=== PATIENT | female | born 1995 | race Caucasian/White ===

== ENCOUNTER 2016-12-24 15:48 | Emergency (ER) | payer OTHER ==
[~2016-12-24] VITALS: Ht 175.3 cm; Wt 148.6 kg
[~2016-12-24 15:48] MED LIST: MULT-222 PO
[2016-12-24 15:52] VITALS: TEMP 36.7; Ht 175.3 cm; Wt 148.6 kg
[2016-12-24] MEDS ORDERED: METHYLPREDNISOLONE 125 MG VIAL IV STA (16:02)
[2016-12-24] MEDS ORDERED: ALBUT/IPRATROP 3MG/0.5MG NEB 3 ML VIAL INH STA ×2 (16:02→17:19)
--- NOTE | 2016-12-24 16:19 | EMERGENCY ROOM VISIT NOTE ---
History First contact with patient: 15:56 Chief Complaint: SHORTNESS OF BREATH Stated Complaint: CAN'T CATCH BREATH Nursing Triage Summary: "I can't cath my breath." Reports it started yesterday and has gotten worse today. Denies pain History of Present Illness The patient is a 21 year old female who presents to the Emergency Room with complaints of shortness of breath. The patient states that she has had allergy symptoms over the past 2 weeks, including sneezing, nasal discharge and itchy, watery eyes. She reports that this week, the symptoms "moved into her chest." She has had difficulty breathing for the past 2 days. She is taking Mucinex and Zyrtec without relief of her symptoms. She denies any history of asthma. She denies any history of breathing problems. She does not take control pills and denies any recent long travel. She denies any personal or family history of blood clots or clotting disorders. She denies any chest pain. She has a mild, nonproductive cough. She denies any fevers/chills, leg pain or swelling. Review of Systems A complete 10 point review of systems was reviewed with the patient with pertinent positives and negatives as per history of present illness. All else were negative. Past Medical/Surgical History Medical Problems: (1) Hypertension Family History Diabetes mellitus FH: heart disease Hypertension Kidney disease Kidney stones Social History Smoking Status: Never Smoker Alcohol Use: none Drug Use: none Marital Status: in relationship Housing Status: lives with family Occupation Status: employed Current/Historical Medications Scheduled Azithromycin (Zithromax Z-Bryan), 0 PO UD Fluoxetine (Prozac), 20 MG PO QAM Methylprednisolone (Medrol Dosepak), 0 PO DAILY Scheduled PRN Guaifenesin (Mucinex Maximum Strength), 1 TAB PO BID PRN for CONGESTION Allergies Coded Allergies: No Known Allergies (Unverified , 12/24/16) Physical Exam Vital Signs Date Time Temp Pulse Resp B/P Pulse Ox O2 Delivery O2 Flow Rate FiO2 12/24/16 18:20 107 20 110/86 96 12/24/16 17:03 103 20 109/76 92 Room Air 12/24/16 16:56 108 12/24/16 16:10 93 Room Air 12/24/16 16:10 Room Air 12/24/16 15:55 93 Room Air 12/24/16 15:52 36.7 109 20 141/97 93 Room Air Physical Exam VITALS: Vitals are noted on the nurse's note and reviewed by myself. Vital signs stable. GENERAL: This is a 21-year-old female, in no acute distress, nondiaphoretic, well-developed well-nourished. SKIN: The skin was without rashes. EARS: External auditory canals clear, tympanic membranes pearly molina without erythema or effusion bilaterally. EYES: Pupils equal round and reactive to light and accommodation. Conjunctivae without injection, sclerae without icterus. NOSE: Patent, turbinates mildly inflamed with clear discharge. MOUTH: Mucous membranes moist. Tonsils are not enlarged. Pharynx without erythema or exudate. NECK: Supple without nuchal rigidity. No lymphadenopathy. HEART: Regular rate and rhythm without murmurs gallops or rubs. LUNGS: Diffuse inspiratory and expiratory wheezes. No rhonchi or rales. No accessory muscle use. NEURO: Patient was alert and oriented to person place and time. Medical Decision & Procedures ER Provider Diagnostic Interpretation: CHEST 2 VIEWS ROUTINE HISTORY: cough, wheezing COMPARISON: None. FINDINGS: The lungs are clear. Cardiac silhouette is normal in size. No pleural effusions. No pneumothorax. IMPRESSION: No acute process. Laboratory Results 12/24/16 16:10 Red Blood Count 5.21, Mean Corpuscular Volume 83.3, Mean Corpuscular Hemoglobin 27.6, Mean Corpuscular Hemoglobin Concent 33.2, Mean Platelet Volume 10.2, Neutrophils (%) (Auto) 68.6, Lymphocytes (%) (Auto) 21.9, Monocytes (%) (Auto) 6.1, Eosinophils (%) (Auto) 3.0, Basophils (%) (Auto) 0.1, Neutrophils # (Auto) 9.39, Lymphocytes # (Auto) 2.99, Monocytes # (Auto) 0.83, Eosinophils # (Auto) 0.41, Basophils # (Auto) 0.02 12/24/16 16:10 Test 12/24/16 16:10 White Blood Count 13.68 K/uL (4.8-10.8) Red Blood Count 5.21 M/uL (4.2-5.4) Hemoglobin 14.4 g/dL (12.0-16.0) Hematocrit 43.4 % (37-47) Mean Corpuscular Volume 83.3 fL (80-100) Mean Corpuscular Hemoglobin 27.6 pg (25-34) Mean Corpuscular Hemoglobin Concent 33.2 g/dl (32-36) Platelet Count 342 K/uL (130-400) Mean Platelet Volume 10.2 fL (7.4-10.4) Neutrophils (%) (Auto) 68.6 % Lymphocytes (%) (Auto) 21.9 % Monocytes (%) (Auto) 6.1 % Eosinophils (%) (Auto) 3.0 % Basophils (%) (Auto) 0.1 % Neutrophils # (Auto) 9.39 K/uL (1.4-6.5) Lymphocytes # (Auto) 2.99 K/uL (1.2-3.4) Monocytes # (Auto) 0.83 K/uL (0.11-0.59) Eosinophils # (Auto) 0.41 K/uL (0-0.5) Basophils # (Auto) 0.02 K/uL (0-0.2) RDW Standard Deviation 40.7 fL (36.4-46.3) RDW Coefficient of Variation 13.5 % (11.5-14.5) Immature Granulocyte % (Auto) 0.3 % Immature Granulocyte # (Auto) 0.04 K/uL (0.00-0.02) D-Dimer 390 ug/L FEU (0-500) Anion Gap 7.0 mmol/L (3-11) Est Creatinine Clear Calc Drug Dose 155.7 ml/min Estimated GFR () 107.3 Estimated GFR (Non- 92.6 BUN/Creatinine Ratio 17.5 (10-20) Calcium Level 9.3 mg/dl (8.5-10.1) Medications Administered Medications (Trade) Dose Ordered Sig/Jessica Route Start Time Stop Time Status Last Admin Dose Admin Albuterol/ Ipratropium (Duoneb) 3 ml NOW STAT INH 12/24/16 16:02 12/24/16 16:04 DC 12/24/16 16:19 3 ML Methylprednisolone Sodium Succinate (Solu-Medrol IV) 125 mg NOW STAT IV 12/24/16 16:02 12/24/16 16:04 DC 12/24/16 16:19 125 MG Albuterol/ Ipratropium (Duoneb) 3 ml NOW STAT INH 12/24/16 17:19 12/24/16 17:20 DC 12/24/16 17:25 3 ML ED Course The patient was evaluated as above. Labs were drawn and IV access was obtained. Patient was medicated with a DuoNeb treatment and 125 mg Solu-Medrol. Chest x-ray was performed and read by radiology as above. Patient was reevaluated and felt much better, but was still wheezing. An additional DuoNeb treatment was ordered. Discharge instructions were reviewed with the patient. The patient verbalized understanding of my assessment and treatment plan and was discharged home in good condition. Medical Decision Differential diagnosis includes pneumonia, pulmonary embolism, asthma exacerbation, upper respiratory infection, among others. The patient is a 21-year-old female who presents today complaining of difficulty breathing. Exam revealed diffuse wheezes. Labs revealed a mild leukocytosis. D-dimer was not elevated. The patient felt much better after 2 DuoNeb treatments and IV Solu-Medrol. I feel that she likely has an upper respiratory infection and possibly a component of underlying asthma. After her second DuoNeb treatment, she was reevaluated and her lungs sounded much clearer. Her O2 saturations in the room were between 96 and 98%. She will be placed on a Z-Bryan and Medrol Dosepak. She was given an inhaler for symptomatic relief. She was instructed to follow-up with her primary care provider for further evaluation this week. She will return for any worsening shortness of breath or new/concerning symptoms. Based on the patient's presentation and work up, I feel the patient is stable for outpatient treatment. The patient was educated to return to the emergency department for any worsening of their current condition or new/concerning symptoms. She will follow up with her PCP. Impression Primary Impression: Acute bronchitis Departure Information Dispostion Home / Self-Care Condition GOOD Prescriptions Methylprednisolone (MEDROL DOSEPAK) 4 Mg Bryan 0 PO DAILY, #1 PKT Prov: Jihan Murguia PA-C 12/24/16 Azithromycin (ZITHROMAX Z-BRYAN) 250 Mg Tab 0 PO UD, #1 PKT 2 TABS DAY 1, THEN 1 TAB DAILY FOR 4 DAYS Prov: Jihan Murguia PA-C 12/24/16 Referrals Carola Cantrell PShayan (PCP) Patient Instructions My [facility] Additional Instructions You were prescribed Zithromax to be taken as prescribed. This is an antibiotic. All antibiotics have the potential to cause diarrhea. Stop this medication and contact a medical provider if you were to develop any significant adverse side effects including: wheezing, shortness of breath, passing out, vomiting, or a diffuse rash. Always take antibiotics as directed and COMPLETE the ENTIRE course regardless of the improvement of your symptoms. You have been prescribed a Medrol Dosepak. This is a steroid which will help decrease your inflammation. Take the medicine as prescribed. Take the ENTIRE 6 day course of the steroids. Use the inhaler, 2 puffs every 4-6 hours as needed for shortness of breath. Follow-up with your primary care provider this week for further evaluation. Return to the emergency department with any worsening shortness of breath, fevers, or any other new/concerning symptoms. Problem Qualifiers Primary Impression: Acute bronchitis Bronchitis organism: unspecified organism Qualified Codes: J20.9 - Acute bronchitis, unspecified
[2016-12-24] MEDS ORDERED: FLUO20CA35 PO (16:21)
[2016-12-24] MEDS ORDERED: GUAI1TAB69 PO (16:21)
[2016-12-24 16:22] LABS: BASO % 0.1 %; BASO ABS # 0.02 K/uL (0-0.2); COMPLETE YES; HEMATOCRIT 43.4 % (37-47); IG% 0.3 %; LYMPH % 21.9 %; LYMPH ABS # 2.99 K/uL (1.2-3.4); MEAN CELL VOLUME 83.3 fL (80-100); MEAN CORPUSCULAR HEMOGLOBIN 27.6 pg (25-34); MEAN CORPUSCULAR HGB CONC 33.2 g/dl (32-36); MEAN PLATELET VOLUME 10.2 fL (7.4-10.4); MONO % 6.1 %; NEUT % 68.6 %; PLATELET COUNT 342 K/uL (130-400); RED BLOOD COUNT 5.21 M/uL (4.2-5.4); WHITE BLOOD COUNT 13.68 K/uL (4.8-10.8)
[2016-12-24 16:40] LABS: BUN/CREATININE RATIO 17.5 (10-20); CALCIUM 9.3 mg/dl (8.5-10.1); CREATININE 0.88 mg/dl (0.60-1.20)
--- NOTE | 2016-12-24 16:51 | DIAGNOSTIC IMAGING REPORT ---
CHEST 2 VIEWS ROUTINE HISTORY: cough, wheezing COMPARISON: None. FINDINGS: The lungs are clear. Cardiac silhouette is normal in size. No pleural effusions. No pneumothorax. IMPRESSION: No acute process. Electronically signed by: Reuben Mccoy M.D. 12/24/2016 4:49 PM Dictated Date/Time: 12/24/2016 4:48 PM
[2016-12-24] MEDS ORDERED: ALBUTEROL HFA 8 GM INHALER INH ONE (18:00)
[2016-12-24] MEDS ORDERED: AZITTAB PO (18:03)
[2016-12-24] MEDS ORDERED: METH4PAK PO (18:03)
[2016-12-24 18:20] VITALS: BP 110/86; PULSE 107; O2SAT 96
== END 2016-12-24 18:21 | disposition home or self-care (01) ==
LOC: C.EDB 15:49 → C.EDC 18:21
DX: J20.9 Acute bronchitis, unspecified (principal); I10 Essential (primary) hypertension; Z79.899 Other long term (current) drug therapy; Z83.3 Family history of diabetes mellitus; Z82.49 Family history of ischemic heart disease and other diseases of the circulatory system; Z84.1 Family history of disorders of kidney and ureter

== ENCOUNTER 2017-10-12 08:09 | Inpatient (IN) | payer OTHER ==
[~2017-10-12] VITALS: Ht 175.3 cm; Wt 147.0 kg
[~2017-10-12 08:09] MED LIST changes: +FLUO20CA35 PO; +GUAI1TAB69 PO; -MULT-222 PO
[2017-10-12] MEDS ORDERED: LACTATED RINGER'S 1000ML 1,000 ML IV PRN (08:19)
[2017-10-12] MEDS ORDERED: LACTATED RINGER'S 1000ML 500 ML IV PRN ×2 (08:20→14:35)
[2017-10-12] MEDS ORDERED: OXYTOCIN 30 UNITS/500ML NSS IV PRN ×2 (08:30→21:15)
[2017-10-12] MEDS ORDERED: PENICILLIN G POTASSIUM IV 6 MU in DEXTROSE 5% 250ML 250 ML IV ONE (08:30)
[2017-10-12 08:54] LABS: HEMATOCRIT 36.7 % (37-47); HEMOGLOBIN 12.3 g/dL (12.0-16.0); MEAN CELL VOLUME 82.3 fL (80-100); MEAN CORPUSCULAR HEMOGLOBIN 27.6 pg (25-34); MEAN CORPUSCULAR HGB CONC 33.5 g/dl (32-36); MEAN PLATELET VOLUME 10.2 fL (7.4-10.4); PLATELET COUNT 264 K/uL (130-400); RED CELL DISTRIBUTION WIDTH CV 14.6 % (11.5-14.5); RED CELL DISTRIBUTION WIDTH SD 43.5 fL (36.4-46.3); WHITE BLOOD COUNT 9.26 K/uL (4.8-10.8)
[2017-10-12] MEDS: LACTATED RINGER'S 1000ML 1,000 ML IV SCH ×2 (09:07→19:07)
[2017-10-12 09:38] LABS: ALBUMIN 2.4 gm/dl (3.4-5.0); CALCIUM 8.9 mg/dl (8.5-10.1); CREATININE 0.62 mg/dl (0.60-1.20); POTASSIUM 4.1 mmol/L (3.5-5.1)
[2017-10-12] MEDS ORDERED: PRENTAB26 PO (09:39)
[2017-10-12 09:40] VITALS: Ht 175.3 cm; Wt 147.0 kg
[2017-10-12 09:41] LABS: TOTAL PROTEIN 6.6 gm/dl (6.4-8.2)
[2017-10-12] MEDS: PENICILLIN G POTASSIUM IV 3 MU in DEXTROSE 5% 100ML 100 ML IV PRN ×2 (13:04→17:03)
[2017-10-12] MEDS ORDERED: FENTANYL CITRATE INJ 50 MCG/1 ML 2 ML VIAL ONE (13:37)
[2017-10-12] MEDS ORDERED: BUPIVACAINE 0.25% 30 ML VIAL ONE (13:37)
[2017-10-12] MEDS ORDERED: EpHEDrine SULFATE INJ 50 MG/ML AMP ONE (13:37)
[2017-10-12] MEDS ORDERED: FENTANYL 2MCG/ML ROPIV 1.25MG/ML 100ML BAG EPI ONE (13:40)
[2017-10-12] MEDS ORDERED: NALOXONE HCL INJ 1 MG in SODIUM CHLORIDE 0.9% 1000ML 1,000 ML IV PRN ×4 (14:35)
[2017-10-12] MEDS ORDERED: FENTANYL 2MCG/ML ROPIV 1.25MG/ML 100ML BAG EPI PRN (14:45)
[2017-10-12] MEDS ORDERED: EpHEDrine SULFATE INJ 50 MG/ML AMP IV PRN (14:45)
[2017-10-12] MEDS ORDERED: ONDANSETRON INJ 2 MG/ML 2 ML VIAL IV PRN (14:45)
[2017-10-12] MEDS ORDERED: DiphenhydrAMINE HCL 50 MG/ML VIAL IV PRN (14:45)
[2017-10-12] MEDS ORDERED: NALOXONE HCL INJ 0.4 MG/1 ML VIAL/CARP IV PRN (14:45)
[2017-10-12] MEDS ORDERED: NALBUPHINE HCL INJ 10 MG/ML AMP IV PRN (14:45)
[2017-10-12] MEDS ORDERED: PROMETHAZINE HCL INJ 25 MG in SODIUM CHLORIDE 0.9% 50ML 50 ML IV PRN (14:45)
[2017-10-12] MEDS ORDERED: LACTATED RINGER'S 1000ML 1,000 ML IV SCH (21:11)
[2017-10-12] MEDS ORDERED: HYDROCORTISONE ACETATE 25 MG SUPP PR PRN (21:15)
[2017-10-12] MEDS ORDERED: ACETAMINOPHEN 325 MG TAB PO PRN (21:15)
[2017-10-12] MEDS ORDERED: MEASLES, MUMPS & RUBELLA VIRUS VIAL SQ. ONE (21:15)
[2017-10-12] MEDS ORDERED: BENZOCAINE 20% AER SPR 82.5 GM CAN EXT PRN (21:15)
[2017-10-12] MEDS ORDERED: SUPERCREAM 0.870 % 15GM JAR EXT PRN (21:15)
[2017-10-12] MEDS ORDERED: DIPHTHERIA/TETANUS/PERTUSSIS 0.5 ML SYR/VIAL IM. ONE (21:15)
[2017-10-12] MEDS ORDERED: LANOLIN OINT EXT PRN (21:15)
--- NOTE | 2017-10-12 21:45 | Anesthesia Procedure Note ---
Anesthesia Epidural Removal Nt Date & Time Oct 12, 2017 at 21:45 Vital Signs Pain Intensity: 0.0 Notes Mental Status: alert / awake / arousable, participated in evaluation Nausea / Vomiting: adequately controlled Pain: adequately controlled Airway Patency, RR, SpO2: stable & adequate BP & HR: stable & adequate Hydration State: stable & adequate Neuraxial Anesthesia: was administered Anesthetic Complications: no major complications apparent, pt satisfied with anesthetic care Epidural: removed without complications, with tip intact
--- NOTE | 2017-10-12 22:11 | DELIVERY SUMMARY ---
DATE OF OPERATION: 10/12/2017 TIME OF DELIVERY OF THE BABY: 2100 p.m. DELIVERY OF PLACENTA: 2106 p.m. DETAILS OF DELIVERY: The patient was found to be fully dilated and desired to push. She pushed with 3 contractions and delivered the head without difficulty. There was a nuchal cord around the neck x1 which was reduced. Shoulders were delivered with minimal traction. Baby was handed off to the mother where mouth and nose were suctioned. Cord was clamped x2 and cut at 1 minute delay and then cord blood was obtained. Baby was taken by the nursery team. See their note for details. Vagina and perineum were checked for lacerations, there were no lacerations found and vagina and perineum were intact. Then placenta was found to be in the vagina and delivered spontaneous as intact and complete. Uterus was explored and found to be empty. Lower segment was cleared of all clots and debris. Fundus was firm. EBL was 200. Mom and baby tolerated the procedure well. All sponge, lap instrument counts were correct x2. Baby was a viable male infant. Apgars 8/9, weight is 3450 gr. No complications happened. Mom and baby tolerated the procedure well and I was present during the whole procedure. I attest to the content of the Intraoperative Record and any orders documented therein. Any exceptions are noted below. MTDD
[2017-10-13] VITALS (7 sets, daily range): BP systolic 106–119; BP diastolic 58–82; PULSE 78–96; TEMP 36.5–37.1; O2SAT 97–99
[2017-10-13] MEDS: IBUPROFEN 600 MG TAB PO PRN ×2 (04:09→17:07)
[2017-10-13 06:12] LABS: HEMATOCRIT 31.8 % (37-47); HEMOGLOBIN 10.7 g/dL (12.0-16.0)
[2017-10-13] MEDS: FERROUS SULFATE 325 MG TAB PO SCH (08:33)
[2017-10-13] MEDS: DOCUSATE SODIUM 100 MG CAP PO SCH ×2 (08:33→20:52)
[2017-10-13] MEDS: PRENATAL VITAMIN TAB PO SCH (08:33)
[2017-10-13] MEDS ORDERED: BISACODYL 5 MG TABEC PO SCH (20:00)
[2017-10-14] MEDS ORDERED: BISACODYL 10 MG SUPP PR PRN (07:00)
[2017-10-14] MEDS: PRENATAL VITAMIN TAB PO SCH (07:38)
[2017-10-14] MEDS: FERROUS SULFATE 325 MG TAB PO SCH (07:38)
[2017-10-14] MEDS: DOCUSATE SODIUM 100 MG CAP PO SCH (07:38)
[2017-10-14 07:40] VITALS: BP 138/93; PULSE 85; TEMP 36.7; O2SAT 98
[2017-10-14] MEDS: IBUPROFEN 600 MG TAB PO PRN (08:16)
[2017-10-14 08:47] LABS: HEMATOCRIT 38.4 % (37-47); HEMOGLOBIN 12.7 g/dL (12.0-16.0); MEAN CELL VOLUME 82.6 fL (80-100); MEAN CORPUSCULAR HEMOGLOBIN 27.3 pg (25-34); MEAN CORPUSCULAR HGB CONC 33.1 g/dl (32-36); MEAN PLATELET VOLUME 10.7 fL (7.4-10.4); PLATELET COUNT 246 K/uL (130-400); RED CELL DISTRIBUTION WIDTH CV 14.7 % (11.5-14.5); RED CELL DISTRIBUTION WIDTH SD 44.2 fL (36.4-46.3); WHITE BLOOD COUNT 9.58 K/uL (4.8-10.8)
[2017-10-14] MEDS ORDERED: MTR600X PO (09:41)
--- NOTE | 2017-10-14 09:44 | Discharge Instructions ---
Discharge Instructions Date of Service Oct 14, 2017. Admission Reason for Admission: Induction Discharge Discharge Diagnosis / Problem: term delivered Discharge Goals Goal(s): Routine recovery after delivery, Routine recovery after Activity Recommendations Activity Limitations: as noted below Lifting Limitations: no more than 10 pounds Exercise/Sports Limitations: gradually increase as tolerated May Resume Sexual Activity: after follow-up appointment Shower/Bathe: no limitations Driving or Machine Use: no limitations . Instructions / Follow-Up Instructions / Follow-Up ACTIVITY RECOMMENDATIONS: * Gradual return to full activity over the next 2-3 weeks. * No lifting - nothing heavier than baby over the next 2-3 weeks. * Do not engage in vigorous exercise, sexual activity or sports until cleared by your physician. * Do not drive or operate any motorized equipment until cleared by your physician. * You may shower/bathe daily. BREAST CARE: If you are not breast feeding: * Wear a supportive bra 24 hours a day for one to two weeks. * Avoid stimulating your breasts and nipples as much as possible during the first few weeks after delivery. * When taking a shower, have the warm water hit your back, not breasts. * When your breasts feel full, apply ice packs. Usually three to four times a day helps ease the discomfort. * Take a mild pain medication (Tylenol/Motrin) when you are uncomfortable. If breast feeding: * Use breast milk to lubricate nipples. Lansinoh cream may be used for sore nipples. You do not need to remove cream prior to breast feeding. If using a different brand of cream, check the label for directions regarding removal of cream prior to nursing. * Wear a supportive bra. * If having problems with breasts or breast feeding, call a customer service consultant or your health care provider. EPISIOTOMY CARE: After delivery, if you have an episiotomy (stitches), the following steps will ease discomfort and aid healing. * For the first 24 hours after delivery, place ice packs next to your episiotomy to help reduce swelling. * After the first 24 hour-period, sitz baths, either portable or in the tub, are suggested. A shower with a shower arm sprayed over the episiotomy may be comforting. * Urvashi care should be done after each voiding and bowel movement. Squirt warm water from a plastic bottle over the perineum (region of the body between the anus and urinary opening) and pat dry. * Use Dermoplast to ease discomfort. Shake container. [place] directly over the episiotomy. * Place a Tucks on a clean sanitary pad next to your episiotomy. OVER THE COUNTER MEDICATION: * For discomfort or pain, you may use Acetaminophen (Tylenol), Ibuprofen (Advil ), or Naproxen (Aleve) following the package directions. * For constipation you may use Colace following the package directions. SPECIAL CARE INSTRUCTIONS: When you are discharged from the hospital, it is important for you to follow the instructions listed below: * During the first week at home, you should be able to care for yourself and your baby. In addition, the usual light household activities are encouraged. * Limit your activities to the way you feel. Do not try to clean the house or move furniture. Be sensible. * If you actively engage in sports and have done so up until the time of your delivery, you may resume these activities as soon as you feel able. This may take up to one month or even longer. Use good judgment. * Continue to take your vitamins for at least six weeks after the of your baby. * Your diet need not be limited unless you were on a special diet before your delivery. Breast-feeding mothers need around 2500 calories per day and at least 64-80 ounces of fluid per day (8 to 10 glasses). * You should eat foods from the four major food groups. Crash diets or fad diets are to be avoided. Eating lean meats, fresh fruits and vegetables, low-fat dairy products, high fiber foods and a regular exercise program, will help you get back to your pre- weight without putting your health at risk. * Constipation is sometimes a problem after delivery. Take a mild laxative as needed. If breast feeding, Milk of Magnesia is acceptable to use. You may use a suppository or Fleets enema if no episiotomy. * A daily shower or tub bath is suggested. Be sure to thoroughly and gently dry the perineum. * A bloody vaginal discharge will usually continue until around four weeks post . A small amount of bleeding may continue for as long as six weeks. Vaginal discharge changes from the bright red bleeding after delivery to pink then brownish and finally yellowish-pink before becoming white and disappearing. * Bleeding may increase with activity. Your first period may come in 4-8 weeks. If you are breast feeding, your period may be delayed even longer. * [place] (sex) can begin whenever both you and your partner feel comfortable and do not have any form of genital infection. It is recommended that you wait until after your return appointment and discuss with your physician. If you have questions, please talk to your health care practitioner. A condom should be used to prevent infection and . * Foreplay, gentle intercourse and lubrication is very important the first several times to prevent pain. A water-based lubricant such as K-Y jelly or Astroglide may be used. * Tampons may be used six weeks after delivery. * Douching should be avoided for 6 weeks after delivery. * If you have RH negative blood and your baby is RH positive, you will receive RHOGAM by injection prior to discharge. The nurse will give you a card to keep with you that has the date and place that you received RHOGAM after delivery. * During your care, you had a Rubella screen done to check for the presence of rubella antibodies in your blood. If your test was negative, you will receive a Rubella vaccine prior to discharge. This vaccine may cause a fever, soreness at the injection site and flu-like symptoms. If these symptoms persist, notify your health care practitioner. is not advised for three months after a Rubella vaccine. There is a higher chance of having a baby with defects if conceived within three months of getting the vaccine. * If you were discharged 24 hours from delivery or before 48 hours: Visiting nurses will come to your home 48 hours after discharge to assess you and your baby. The visiting nurse will meet with you while you are in the hospital to arrange a time and get directions to your home. * Verbalizes understanding of car seat law as reviewed with patient nursing. * Car Seat hand-out given and reviewed with patient by nursing. * Shaken baby information reviewed with patient by nursing. Call you doctor if: * Heavy bleeding (saturating several pads an hour) or passing clots the size of your fist. * A fever >101 degrees F (38.3 degrees C) on two occasions four hours apart and/or chills. * Unusual pain in the pelvic or vaginal areas. * "Baby Blues" lasting longer than two weeks. If you have any questions or concerns, call your health care practitioner at . FOLLOW-UP VISIT: * Please call the office at to schedule a 6 week examination. It is important you keep this appointment. * It is important for you to make arrangements for either yearly or twice yearly check-ups thereafter. Current Hospital Diet Patient's current hospital diet: Regular OB Diet Discharge Diet Recommended Diet: Kosher Diet, Regular OB Diet Pending Studies Studies pending at discharge: no Medical Emergencies . Who to Call and When: Medical Emergencies: If at any time you feel your situation is an emergency, please call 911 immediately. . Non-Emergent Contact Non-Emergency issues call your: Primary Care Provider . . "Provider Documentation" section prepared by Amado Avila. .
--- NOTE | 2017-10-14 09:46 | OB/GYN Progress Note ---
[employer] Progress Note Date of Service Oct 14, 2017. Subjective conversation w/ patient, physical exam Ambulation: ambulating normally Voiding: no voiding problems Passing Gas: Yes Diet Tolerance: Regular Diet Lochia: Small Feeding Type: Bottle Feeding Objective Vital Signs Date Time Temp Pulse Resp B/P (MAP) Pulse Ox O2 Delivery O2 Flow Rate FiO2 10/13/17 23:30 Room Air 10/13/17 23:30 36.7 80 18 119/82 (94) Room Air 10/13/17 20:59 36.5 83 16 118/78 (91) Room Air 10/13/17 15:40 36.8 85 18 97 Room Air 10/13/17 15:40 Room Air 10/13/17 11:30 36.6 78 16 116/77 (90) 98 Room Air Physical Exam General Appearance: WELL-APPEARING, NO APPARENT DISTRESS Abdomen: non tender, soft Fundus: Firm Extremities: non-tender Laboratory Results Last 24 Hours Test 10/14/17 08:37 White Blood Count 9.58 K/uL Red Blood Count 4.65 M/uL Hemoglobin 12.7 g/dL Hematocrit 38.4 % Mean Corpuscular Volume 82.6 fL Mean Corpuscular Hemoglobin 27.3 pg Mean Corpuscular Hemoglobin Concent 33.1 g/dl RDW Standard Deviation 44.2 fL RDW Coefficient of Variation 14.7 % Platelet Count 246 K/uL Mean Platelet Volume 10.7 fL Assessment and Plan Post- Day Number: 2 Continue Routine Care: discharged
[2017-10-14 11:30] VITALS: BP 100/63; PULSE 84; TEMP 36.7; O2SAT 97
[2017-10-14 12:15] VITALS: BP_DIAS 93; PULSE 85; TEMP 36.7
== END 2017-10-14 12:25 | disposition home or self-care (01) | DRG 775 ==
LOC: C.LD 08:09 → C.OBG 23:40
PROVIDERS: ADMIT Obstetrics & Gynecology; ATTEND Obstetrics & Gynecology
PROC: 3E033VJ Introduction of Other Hormone into Peripheral Vein, Percutaneous Approach (ICD-10-PCS; principal; 2017-10-12)
PROC: 10E0XZZ Delivery of Products of Conception, External Approach (ICD-10-PCS; principal; 2017-10-12)
DX: O99.214 Obesity complicating childbirth (principal); Z68.42 Body mass index [BMI] 45.0-49.9, adult; O99.824 Streptococcus B carrier state complicating childbirth; O69.81X0 Labor and delivery complicated by cord around neck, without compression, not applicable or unspecified; Z3A.40 40 weeks gestation of pregnancy; Z37.0 Single live birth

== ENCOUNTER 2021-02-11 12:59 | Inpatient (IN) ==
[2021-02-13] MEDS ORDERED: DINOPROSTONE 10 MG INSERT PV ONE (14:53)
[2021-02-13] MEDS ORDERED: OXYTOCIN 30 UNITS/500 ML BAG IV PRN (14:53)
[2021-02-13] MEDS ORDERED: PENICILLIN G POTASSIUM 6 MU in DEXTROSE 5% 250 ML IV STA (14:53)
[2021-02-13 15:18] LABS: Hematocrit (blood only) 35.7 % (37-47); Hemoglobin 11.8 g/dL (12.0-16.0); Mean Corpuscular Hemoglobin 26.8 pg (25-34); Mean Corpuscular Hgb Conc 33.1 g/dL (32-36); Mean Corpuscular Volume 81.1 fL (80-100); Platelet Count 300 K/uL (130-400); RDW Coefficient of Variation 15.2 % (11.5-14.5); RDW Standard Deviation 44.3 fL (36.4-46.3); White Blood Count 8.56 K/uL (4.8-10.8)
--- NOTE | 2021-02-13 15:20 | History & Physical Report ---
Date of Service February 13, 2021 Assessment & Plan (1) Obesity affecting in third trimester, antepartum: 25-year-old -0-0-2 at 39 weeks and 3 days of gestation presenting for scheduled induction of labor at term, Vital signs stable afebrile, heart rate reassuring, GBS positive, Cervix unfavorable, Plan to admit, monitor, labs, cervical ripening with Cervidil. Patient understands the findings and what to expect during induction, All questions were answered. (2) GBS (group B Streptococcus carrier), +RV culture, currently : Admission and Anticipated Discharge Date Admission Date: February 13, 2021 History of Present Illness Primary Care Provider: Carola Cantrell PA-C Is a 25-year-old -0-0-2 at 39 weeks and 3 days of gestation who is here for scheduled induction of labor at term due to history of class III obesity. She has no complaints. She denies contractions, leakage of fluid, vaginal bleeding. She reports good movements. She denies headache, change in her vision, nausea vomiting, fever chills, chest pain or shortness of breath, symptoms of Covid. Her has been complicated by 1 class III obesity, last growth scan was 2 weeks ago and baby was measuring 35 6 0 g. 2 GBS positive 3 history of depression, on Prozac daily and feeling well. Allergies Allergy/AdvReac Type Severity Reaction Status Date / Time No Known Allergies Allergy Unverified 12/04/20 11:26 Home Medications Medication Instructions Recorded Confirmed Type fluoxetine 20 mg PO QAM PRN 12/04/20 12/04/20 History prenat.vits,adelaida,[id number] 1 tab PO QAM 12/04/20 12/04/20 History [ #2] Patient History Medical History Anxiety No pertinent family history Preeclampsia Surgical History No pertinent past surgical history Social History Smoking Status: Never smoker Feels Safe at Home: Yes OB History 2 FT CLERICAL ADVISER History No h/o STD's, history of herpes, chlamydia, gonorrhea. Review of Systems All systems reviewed & are unremarkable except as noted in HPI & below Physical Exam Constitutional: WD/WN, vitals as above well developed, well nourished and + morbidly obese Gastrointestinal (Abdomen): normal bowel sounds, soft, nontender, no hepatosplenomegaly (Gravid) Genitourinary: normal external appearance OB Exam Abdomen: + vertex Manual OB Exam: + cervical dilation 1 cm, + cervical effacement 10% and + station high (-3) OB Exam Monitor Tracing: + external uterine monitor used and + category I Results & Data ([facility]) Vital Signs (Past 12 Hours) Vital Signs Temp Pulse Resp BP 02/13/21 14:51 97 H 134/63 02/13/21 14:44 37.4 C 22
[2021-02-13 15:40] LABS: Alanine Aminotransferase 19 U/L (12-78); Albumin Level 2.4 gm/dl (3.4-5.0); Aspartate Aminotransferase 13 U/L (15-37); BUN Creatinine Ratio 13.6 (10-20); Blood Urea Nitrogen 9 mg/dl (7-18); Calcium 8.9 mg/dl (8.5-10.1); Carbon Dioxide 25 mmol/L (21-32); Chloride 106 mmol/L (98-107); Est GFR (African American) 141.7 ml/min; Est GFR (Non-African American) 122.3 ml/min; Glucose 88 mg/dl (70-99); Potassium 4.1 mmol/L (3.5-5.1); Sodium 137 mmol/L (136-145)
[2021-02-13 15:42] LABS: Albumin Globulin Ratio 0.6 (0.9-2); Alkaline Phosphatase 114 U/L (45-117); Bilirubin,Total 0.2 mg/dl (0.2-1); Globulin 4.2 gm/dl (2.5-4.0); Total Protein 6.6 gm/dl (6.4-8.2)
--- NOTE | 2021-02-13 16:05 | Obstetrical Progress Note ---
Date of Service February 13, 2021 Assessment & Plan Admission and Anticipated Discharge Date Admission Date: February 13, 2021 Subjective COVID negative Cervidil is placed in posterior cervix Patient has no complaints. Continue to monitor Results & Data ([facility]) Vital Signs (Past 12 Hours) Vital Signs Temp Pulse Resp BP 02/13/21 14:51 97 H 134/63 02/13/21 14:44 37.4 C 22
[2021-02-13] MEDS: LACTATED RINGER'S 1,000 ML IV PRN ×2 (18:00→19:19)
[2021-02-13] MEDS ORDERED: TERBUTALINE SULFATE 1 MG/ML VIAL SQ ONE (18:26)
--- NOTE | 2021-02-13 18:37 | Obstetrical Progress Note ---
Date of Service February 13, 2021 Assessment & Plan Admission and Anticipated Discharge Date Admission Date: February 13, 2021 Subjective Patient had hyperstimulation with recurrent contractions after Cervidil was placed FHR had decels to 90-100's with quick recovery Cervidil is removed, IVF bolus, nasal O2 was started amd 1 dose of terb was given FHR 140-150's Continue to monitor closely Results & Data ([facility]) Vital Signs (Past 12 Hours) Vital Signs Temp Pulse Resp BP Pulse Ox 02/13/21 18:29 102 H 95 02/13/21 18:19 90 100 02/13/21 18:16 91 H 116/56 L 02/13/21 18:14 88 119/58 L 100 02/13/21 18:09 92 H 99 02/13/21 18:04 87 97 02/13/21 16:30 99 H 136/61 02/13/21 15:59 37.4 C 97 H 20 134/63 02/13/21 14:51 97 H 134/63 02/13/21 14:44 37.4 C 22
--- NOTE | 2021-02-13 19:45 | Obstetrical Progress Note ---
Date of Service February 13, 2021 Assessment & Plan Admission and Anticipated Discharge Date Admission Date: February 13, 2021 Subjective Patient is reevaluated. She feels much better now contractions spaced out to every 2 to 3 minutes, pain is 6 out of 10. They were every half a minute and pain was 10 when she had the hyperstimulation. IV fluid bolus is complete and heart rate is 150s with good variability no decelerations. [place] contractions every 2 to 3 minutes. Continue to monitor closely Results & Data ([facility]) Vital Signs (Past 12 Hours) Vital Signs Temp Pulse Resp BP Pulse Ox 02/13/21 19:39 105 H 100 02/13/21 19:34 107 H 99 02/13/21 19:29 95 H 98 02/13/21 19:24 107 H 98 02/13/21 19:19 106 H 100 02/13/21 19:14 100 H 100 02/13/21 19:09 105 H 98 02/13/21 19:08 36.7 C 20 02/13/21 19:06 36.7 C 100 H 20 128/71 02/13/21 19:04 99 H 100 02/13/21 18:59 107 H 100 02/13/21 18:54 97 H 96 02/13/21 18:49 102 H 96 02/13/21 18:44 112 H 98 02/13/21 18:39 107 H 97 02/13/21 18:36 101 H 120/62 02/13/21 18:34 100 H 98 02/13/21 18:29 102 H 95 02/13/21 18:19 90 100 02/13/21 18:16 91 H 116/56 L 02/13/21 18:14 88 119/58 L 100 02/13/21 18:09 92 H 99 02/13/21 18:04 87 97 02/13/21 18:00 20 02/13/21 16:30 99 H 136/61 02/13/21 15:59 37.4 C 97 H 20 134/63 02/13/21 14:51 97 H 134/63 02/13/21 14:44 37.4 C 22
--- NOTE | 2021-02-13 20:27 | Obstetrical Progress Note ---
Date of Service February 13, 2021 Assessment & Plan Admission and Anticipated Discharge Date Admission Date: February 13, 2021 Subjective Patient is getting very painful again and she desires epidural for pain. heart rate reassuring, baseline is 150 with good accelerations and no decelerations and moderate variability. [place] with contractions every 2 minutes. Cervix is 3 cm, 50% effaced, -3 Continue to monitor closely and epidural for pain. Results & Data ([facility]) Vital Signs (Past 12 Hours) Vital Signs Temp Pulse Resp BP Pulse Ox 02/13/21 20:24 107 H 97 02/13/21 20:19 102 H 97 02/13/21 20:14 104 H 100 02/13/21 20:09 100 H 100 02/13/21 20:04 100 H 99 02/13/21 19:59 99 H 99 02/13/21 19:54 104 H 99 02/13/21 19:49 102 H 99 02/13/21 19:44 109 H 99 02/13/21 19:39 105 H 100 02/13/21 19:34 107 H 99 02/13/21 19:29 95 H 98 02/13/21 19:24 107 H 98 02/13/21 19:19 106 H 100 02/13/21 19:14 100 H 100 02/13/21 19:09 105 H 98 02/13/21 19:08 36.7 C 20 02/13/21 19:06 36.7 C 100 H 20 128/71 02/13/21 19:04 99 H 100 02/13/21 18:59 107 H 100 02/13/21 18:54 97 H 96 02/13/21 18:49 102 H 96 02/13/21 18:44 112 H 98 02/13/21 18:39 107 H 97 02/13/21 18:36 101 H 120/62 02/13/21 18:34 100 H 98 02/13/21 18:29 102 H 95 02/13/21 18:19 90 100 02/13/21 18:16 91 H 116/56 L 02/13/21 18:14 88 119/58 L 100 02/13/21 18:09 92 H 99 02/13/21 18:04 87 97 02/13/21 18:00 20 02/13/21 16:30 99 H 136/61 02/13/21 15:59 37.4 C 97 H 20 134/63 02/13/21 14:51 97 H 134/63 02/13/21 14:44 37.4 C 22
[2021-02-13] MEDS ORDERED: SODIUM CHLORIDE 0.9% INJ 10 ML VIAL ONE (20:33)
[2021-02-13] MEDS ORDERED: BUPIVACAINE 0.25% 30 ML VIAL ONE (20:33)
[2021-02-13] MEDS ORDERED: ePHEDrine sulfate 50 MG/ML AMP ONE (20:33)
[2021-02-13] MEDS ORDERED: fentaNYL citrate 100 MCG/2 ML VIAL ONE (20:33)
[2021-02-13] MEDS ORDERED: fentaNYL 2MCG/ML ROPIVACAINE 1.25MG/ML 100 ML BAG EPI ONE (20:34)
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
[2021-02-13] MEDS ORDERED: fentaNYL 2MCG/ML ROPIVACAINE 1.25MG/ML 100 ML BAG EPI PRN (22:47)
[2021-02-13] MEDS ORDERED: ePHEDrine sulfate 50 MG/ML AMP IV PRN (22:47)
[2021-02-13] MEDS ORDERED: NALOXONE HCL 1 MG in SODIUM CHLORIDE 0.9% 1000ML 1,000 ML IV PRN (22:47)
[2021-02-13] MEDS ORDERED: NALOXONE HCL 0.4 MG/1 ML VIAL/CARP IV PRN (22:47)
[2021-02-13] MEDS ORDERED: diphenhydrAMINE 50 MG/ML VIAL IV PRN (22:47)
[2021-02-13] MEDS ORDERED: ONDANSETRON INJ 2 MG/ML 2 ML VIAL IV PRN (22:47)
--- NOTE | 2021-02-13 23:25 | Obstetrical Progress Note ---
Date of Service February 13, 2021 Assessment & Plan Admission and Anticipated Discharge Date Admission Date: February 13, 2021 Subjective Patient is comfortable now, received epidural for pain Received 1st dose of PCN at 20:30 VSS Afebrile VE; 3-4 cm/ 50%/ -4, ballotable FHR 150's, had occasional variable decels with quick recovery, had acceleration after scalp stimulation and increased variability, categ I [place]: ctxs q 2-3 min Continue to monitor closely Results & Data ([facility]) Vital Signs (Past 12 Hours) Vital Signs Temp Pulse Resp BP Pulse Ox 02/13/21 23:21 99 H 94 02/13/21 23:19 88 119/59 L 02/13/21 23:18 87 96 02/13/21 23:14 91 H 140/59 L 02/13/21 23:13 92 H 95 02/13/21 23:09 98 H 105/55 L 02/13/21 23:08 97 H 95 02/13/21 23:07 94 H 94 02/13/21 23:04 100 H 119/60 02/13/21 23:03 97 H 95 02/13/21 22:59 105 H 122/68 02/13/21 22:58 99 H 96 02/13/21 22:54 98 H 106/63 02/13/21 22:53 99 H 95 02/13/21 22:49 118 H 117/62 02/13/21 22:48 105 H 95 02/13/21 22:45 100 H 94 02/13/21 22:44 105 H 121/55 L 02/13/21 22:43 103 H 97 02/13/21 22:38 106 H 117/59 L 97 02/13/21 22:36 98 H 117/56 L 02/13/21 22:34 94 H 113/57 L 02/13/21 22:33 100 H 96 02/13/21 22:32 96 H 112/57 L 02/13/21 22:30 104 H 104/72 02/13/21 22:28 108 H 117/57 L 96 02/13/21 22:26 101 H 114/55 L 02/13/21 22:24 101 H 109/59 L 02/13/21 22:23 99 H 96 02/13/21 22:22 101 H 104/54 L 02/13/21 22:21 100 H 137/55 L 02/13/21 22:18 115 H 98 02/13/21 22:16 106 H 97/53 L 02/13/21 22:14 100 H 114/53 L 02/13/21 22:13 100 H 96 02/13/21 22:12 102 H 113/54 L 02/13/21 22:10 96 H 119/60 02/13/21 22:08 90 105/55 L 95 02/13/21 22:06 105 H 111/53 L 02/13/21 22:03 102 H 96 02/13/21 21:58 104 H 100 02/13/21 21:57 97 H 94 02/13/21 21:53 96 H 96 02/13/21 21:48 97 H 96 02/13/21 21:43 101 H 96 02/13/21 21:38 104 H 138/88 98 02/13/21 21:36 104 H 138/92 02/13/21 21:33 108 H 97 02/13/21 21:30 36.8 C 18 02/13/21 21:28 105 H 96 02/13/21 21:23 105 H 96 02/13/21 21:22 103 H 93 02/13/21 21:18 106 H 95 02/13/21 21:13 102 H 96 02/13/21 21:08 100 H 98 02/13/21 21:03 101 H 97 02/13/21 20:58 103 H 97 02/13/21 20:53 96 H 96 02/13/21 20:48 103 H 95 02/13/21 20:43 102 H 95 02/13/21 20:38 108 H 96 02/13/21 20:26 103 H 136/78 02/13/21 20:24 107 H 97 02/13/21 20:19 102 H 97 02/13/21 20:14 104 H 100 02/13/21 20:09 100 H 100 02/13/21 20:04 100 H 99 02/13/21 19:59 99 H 99 02/13/21 19:54 104 H 99 02/13/21 19:49 102 H 99 02/13/21 19:44 109 H 99 02/13/21 19:39 105 H 100 02/13/21 19:34 107 H 99 02/13/21 19:29 95 H 98 02/13/21 19:24 107 H 98 02/13/21 19:19 106 H 100 02/13/21 19:14 100 H 100 02/13/21 19:09 105 H 98 02/13/21 19:08 36.7 C 20 02/13/21 19:06 36.7 C 100 H 20 128/71 02/13/21 19:04 99 H 100 02/13/21 18:59 107 H 100 02/13/21 18:54 97 H 96 02/13/21 18:49 102 H 96 02/13/21 18:44 112 H 98 02/13/21 18:39 107 H 97 02/13/21 18:36 101 H 120/62 02/13/21 18:34 100 H 98 02/13/21 18:29 102 H 95 02/13/21 18:19 90 100 02/13/21 18:16 91 H 116/56 L 02/13/21 18:14 88 119/58 L 100 02/13/21 18:09 92 H 99 02/13/21 18:04 87 97 02/13/21 18:00 20 02/13/21 16:30 99 H 136/61 02/13/21 15:59 37.4 C 97 H 20 134/63 02/13/21 14:51 97 H 134/63 02/13/21 14:44 37.4 C 22
[2021-02-14] MEDS: PENICILLIN G POTASSIUM 3 MU in DEXTROSE 5% 100 ML IV PRN ×3 (00:20→08:29)
[2021-02-14] MEDS ORDERED: TERBUTALINE SULFATE 1 MG/ML VIAL SQ ONE (00:42)
[2021-02-14 01:06] LABS: Hematocrit (blood only) 34.4 % (37-47); Hemoglobin 11.3 g/dL (12.0-16.0); Immature Granulocytes # (auto) 0.05 K/uL (0.00-0.02); Immature Granulocytes % (auto) 0.4 %; Lymphocytes # (auto) 1.76 K/uL (1.2-3.4); Lymphocytes % (auto) 12.6 %; Mean Corpuscular Hemoglobin 26.4 pg (25-34); Mean Corpuscular Hgb Conc 32.8 g/dL (32-36); Mean Corpuscular Volume 80.4 fL (80-100); Mean Platelet Volume 10.6 fL (7.4-10.4); Monocytes # (auto) 0.42 K/uL (0.11-0.59); Neutrophils # (auto) 11.71 K/uL (1.4-6.5); Platelet Count 306 K/uL (130-400); RDW Coefficient of Variation 15.3 % (11.5-14.5); RDW Standard Deviation 44.4 fL (36.4-46.3); Red Blood Count 4.28 M/uL (4.2-5.4); White Blood Count 13.94 K/uL (4.8-10.8)
[2021-02-14] MEDS: LACTATED RINGER'S 1,000 ML IV PRN ×3 (01:23→07:06)
[2021-02-14 01:42] LABS: Fibrinogen 507 mg/dl (184-400); Partial Thromboplastin Ratio 0.9; Partial Thromboplastin Time 24.3 Seconds (21.0-31.0); Prothrombin Time 9.7 Seconds (9.0-12.0)
[2021-02-14] MEDS ORDERED: OXYTOCIN 30 UNITS/500 ML BAG IV PRN ×2 (05:11→12:16)
--- NOTE | 2021-02-14 05:11 | Obstetrical Progress Note ---
Date of Service February 14, 2021 Assessment & Plan Admission and Anticipated Discharge Date Admission Date: February 13, 2021 Subjective Patient is reevaluated She feels well, no complaints Unable to sleep due to being excited VSS Afebrile FHR categ I s/p terb due to hyperstimulation and categ I strip Ctxs spaced out, q 3-4 min VE; 4-5cm/ 50%/ -2 Labs WNL Will augment with low dose pitocin Continue to monitor closely Lab Results 02/13/21 02/13/21 02/13/21 Range/Units 14:55 14:55 15:06 WBC (4.8-10.8) K/uL RBC (4.2-5.4) M/uL Hgb (12.0-16.0) g/dL Hct (37-47) % MCV (80-100) fL MCH (25-34) pg MCHC (32-36) g/dL RDW Std Deviation (36.4-46.3) fL RDW Coeff of Pro (11.5-14.5) % Plt Count (130-400) K/uL MPV (7.4-10.4) fL Immature Gran % (Auto) % Neut % (Auto) % Lymph % (Auto) % [place] % (Auto) % Eos % (Auto) % Baso % (Auto) % Neut # (Auto) (1.4-6.5) K/uL Lymph # (Auto) (1.2-3.4) K/uL [place] # (Auto) (0.11-0.59) K/uL Eos # (Auto) (0-0.5) K/uL Baso # (Auto) (0-0.2) K/uL Immature Gran # (Auto) (0.00-0.02) K/uL PT (9.0-12.0) Seconds INR (0.9-1.1) APTT (21.0-31.0) Seconds PTT Ratio Fibrinogen (184-400) mg/dl Sodium (136-145) mmol/L Potassium (3.5-5.1) mmol/L Chloride (98-107) mmol/L Carbon Dioxide (21-32) mmol/L Anion Gap (3-11) BUN (7-18) mg/dl Creatinine (0.6-1.2) mg/dl Est Cr Clr Drug Dosing Est GFR ( Amer) ml/min Est GFR (Non-Af Amer) ml/min BUN/Creatinine Ratio (10-20) Glucose (70-99) mg/dl Calcium (8.5-10.1) mg/dl Total Bilirubin (0.2-1) mg/dl AST (15-37) U/L ALT (12-78) U/L Alkaline Phosphatase (45-117) U/L Total Protein (6.4-8.2) gm/dl Albumin (3.4-5.0) gm/dl Globulin (2.5-4.0) gm/dl Albumin/Globulin Ratio (0.9-2) COVID-19 Eval Order Covid19 [facility]Now [facility] SARS-CoV-2, RNA, NAAT NEGATIVE (NEGATIVE) Blood Type O Positive Antibody Screen NEGATIVE 02/13/21 02/13/21 02/14/21 Range/Units 15:06 15:06 00:57 WBC 8.56 13.94 H (4.8-10.8) K/uL RBC 4.40 4.28 (4.2-5.4) M/uL Hgb 11.8 L 11.3 L (12.0-16.0) g/dL Hct 35.7 L 34.4 L (37-47) % MCV 81.1 80.4 (80-100) fL MCH 26.8 26.4 (25-34) pg MCHC 33.1 32.8 (32-36) g/dL RDW Std Deviation 44.3 44.4 (36.4-46.3) fL RDW Coeff of Pro 15.2 H 15.3 H (11.5-14.5) % Plt Count 300 306 (130-400) K/uL MPV 11.0 H 10.6 H (7.4-10.4) fL Immature Gran % (Auto) 0.4 % Neut % (Auto) 84.0 % Lymph % (Auto) 12.6 % [place] % (Auto) 3.0 % Eos % (Auto) 0.0 % Baso % (Auto) 0.0 % Neut # (Auto) 11.71 H (1.4-6.5) K/uL Lymph # (Auto) 1.76 (1.2-3.4) K/uL [place] # (Auto) 0.42 (0.11-0.59) K/uL Eos # (Auto) 0.00 (0-0.5) K/uL Baso # (Auto) 0.00 (0-0.2) K/uL Immature Gran # (Auto) 0.05 H (0.00-0.02) K/uL PT (9.0-12.0) Seconds INR (0.9-1.1) APTT (21.0-31.0) Seconds PTT Ratio Fibrinogen (184-400) mg/dl Sodium 137 (136-145) mmol/L Potassium 4.1 (3.5-5.1) mmol/L Chloride 106 (98-107) mmol/L Carbon Dioxide 25 (21-32) mmol/L Anion Gap 6.0 (3-11) BUN 9 (7-18) mg/dl Creatinine 0.64 (0.6-1.2) mg/dl Est Cr Clr Drug Dosing Not Reportable Est GFR ( Amer) 141.7 ml/min Est GFR (Non-Af Amer) 122.3 ml/min BUN/Creatinine Ratio 13.6 (10-20) Glucose 88 (70-99) mg/dl Calcium 8.9 (8.5-10.1) mg/dl Total Bilirubin 0.2 (0.2-1) mg/dl AST 13 L (15-37) U/L ALT 19 (12-78) U/L Alkaline Phosphatase 114 (45-117) U/L Total Protein 6.6 (6.4-8.2) gm/dl Albumin 2.4 L (3.4-5.0) gm/dl Globulin 4.2 H (2.5-4.0) gm/dl Albumin/Globulin Ratio 0.6 L (0.9-2) COVID-19 Eval Order SARS-CoV-2, RNA, NAAT (NEGATIVE) Blood Type Antibody Screen 02/14/21 Range/Units 00:57 WBC (4.8-10.8) K/uL RBC (4.2-5.4) M/uL Hgb (12.0-16.0) g/dL Hct (37-47) % MCV (80-100) fL MCH (25-34) pg MCHC (32-36) g/dL RDW Std Deviation (36.4-46.3) fL RDW Coeff of Pro (11.5-14.5) % Plt Count (130-400) K/uL MPV (7.4-10.4) fL Immature Gran % (Auto) % Neut % (Auto) % Lymph % (Auto) % [place] % (Auto) % Eos % (Auto) % Baso % (Auto) % Neut # (Auto) (1.4-6.5) K/uL Lymph # (Auto) (1.2-3.4) K/uL [place] # (Auto) (0.11-0.59) K/uL Eos # (Auto) (0-0.5) K/uL Baso # (Auto) (0-0.2) K/uL Immature Gran # (Auto) (0.00-0.02) K/uL PT 9.7 (9.0-12.0) Seconds INR 1.0 (0.9-1.1) APTT 24.3 (21.0-31.0) Seconds PTT Ratio 0.9 Fibrinogen 507 H (184-400) mg/dl Sodium (136-145) mmol/L Potassium (3.5-5.1) mmol/L Chloride (98-107) mmol/L Carbon Dioxide (21-32) mmol/L Anion Gap (3-11) BUN (7-18) mg/dl Creatinine (0.6-1.2) mg/dl Est Cr Clr Drug Dosing Est GFR ( Amer) ml/min Est GFR (Non-Af Amer) ml/min BUN/Creatinine Ratio (10-20) Glucose (70-99) mg/dl Calcium (8.5-10.1) mg/dl Total Bilirubin (0.2-1) mg/dl AST (15-37) U/L ALT (12-78) U/L Alkaline Phosphatase (45-117) U/L Total Protein (6.4-8.2) gm/dl Albumin (3.4-5.0) gm/dl Globulin (2.5-4.0) gm/dl Albumin/Globulin Ratio (0.9-2) COVID-19 Eval Order SARS-CoV-2, RNA, NAAT (NEGATIVE) Blood Type Antibody Screen Results & Data ([facility]) Vital Signs (Past 12 Hours) Vital Signs Temp Pulse Resp BP Pulse Ox 02/14/21 05:05 87 119/66 02/14/21 05:04 92 H 94 02/14/21 05:03 95 H 95 02/14/21 04:58 95 H 96 02/14/21 04:56 92 H 94 02/14/21 04:53 94 H 96 02/14/21 04:49 93 H 120/57 L 02/14/21 04:48 93 H 97 02/14/21 04:43 100 H 97 02/14/21 04:38 99 H 97 02/14/21 04:35 104 H 122/55 L 02/14/21 04:33 101 H 97 02/14/21 04:28 95 H 96 02/14/21 04:23 97 H 96 02/14/21 04:19 93 H 113/58 L 02/14/21 04:18 101 H 96 02/14/21 04:17 94 H 94 02/14/21 04:13 96 H 95 02/14/21 04:08 90 95 02/14/21 04:07 92 H 94 02/14/21 04:05 100 H 103/61 02/14/21 04:03 92 H 95 02/14/21 04:00 18 02/14/21 03:58 112 H 95 02/14/21 03:57 97 H 94 02/14/21 03:53 99 H 94 02/14/21 03:52 97 H 94 02/14/21 03:49 96 H 116/58 L 02/14/21 03:48 98 H 94 02/14/21 03:46 101 H 94 02/14/21 03:43 97 H 94 02/14/21 03:38 95 H 94 02/14/21 03:35 95 H 114/62 02/14/21 03:33 102 H 95 02/14/21 03:30 18 02/14/21 03:29 95 H 94 02/14/21 03:28 98 H 95 02/14/21 03:23 98 H 95 02/14/21 03:21 90 94 02/14/21 03:19 96 H 113/59 L 02/14/21 03:18 96 H 95 02/14/21 03:13 97 H 95 02/14/21 03:08 101 H 95 02/14/21 03:07 96 H 94 02/14/21 03:04 98 H 104/56 L 02/14/21 03:03 101 H 95 02/14/21 03:01 92 H 93 02/14/21 03:00 18 02/14/21 02:58 97 H 96 02/14/21 02:53 92 H 96 02/14/21 02:52 94 H 93 02/14/21 02:49 105 H 115/61 02/14/21 02:48 115 H 97 02/14/21 02:47 93 H 94 02/14/21 02:43 97 H 93 02/14/21 02:42 97 H 94 02/14/21 02:38 101 H 95 02/14/21 02:36 110 H 94 02/14/21 02:34 97 H 115/60 02/14/21 02:33 99 H 94 02/14/21 02:31 102 H 94 02/14/21 02:30 18 02/14/21 02:28 101 H 94 02/14/21 02:25 96 H 94 02/14/21 02:23 103 H 94 02/14/21 02:20 106 H 94 02/14/21 02:19 100 H 115/64 02/14/21 02:18 104 H 95 02/14/21 02:14 100 H 94 02/14/21 02:13 104 H 95 02/14/21 02:08 101 H 95 02/14/21 02:06 107 H 94 02/14/21 02:04 104 H 121/57 L 02/14/21 02:03 110 H 95 02/14/21 02:00 110 H 18 94 02/14/21 01:58 102 H 93 02/14/21 01:54 102 H 93 02/14/21 01:53 110 H 95 02/14/21 01:49 107 H 122/58 L 02/14/21 01:48 100 H 94 02/14/21 01:45 105 H 94 02/14/21 01:43 103 H 94 02/14/21 01:39 100 H 94 02/14/21 01:38 108 H 95 02/14/21 01:34 104 H 112/54 L 02/14/21 01:33 109 H 94 02/14/21 01:30 18 07/03/21 01:28 100 H 95 02/14/21 01:23 100 H 96 02/14/21 01:20 100 H 121/57 L 02/14/21 01:19 94 H 94 02/14/21 01:18 97 H 95 02/14/21 01:13 91 H 95 02/14/21 01:08 89 96 02/14/21 01:07 86 94 02/14/21 01:05 85 121/58 L 02/14/21 01:03 36.7 C 84 96 02/14/21 01:00 18 02/14/21 00:58 87 95 02/14/21 00:57 89 94 02/14/21 00:53 88 97 02/14/21 00:50 84 94 02/14/21 00:49 77 112/59 L 02/14/21 00:48 85 95 02/14/21 00:45 80 94 02/14/21 00:43 83 93 02/14/21 00:38 87 94 02/14/21 00:34 85 112/58 L 02/14/21 00:33 87 96 02/14/21 00:30 18 02/14/21 00:28 98 H 96 02/14/21 00:26 93 H 94 02/14/21 00:23 86 96 02/14/21 00:19 93 H 117/55 L 02/14/21 00:18 83 95 02/14/21 00:16 88 94 02/14/21 00:13 89 96 02/14/21 00:09 95 H 93 02/14/21 00:08 91 H 95 02/14/21 00:05 86 118/55 L 02/14/21 00:03 90 95 02/14/21 00:00 18 02/13/21 23:59 91 H 93 02/13/21 23:58 90 95 02/13/21 23:53 102 H 96 02/13/21 23:50 89 94 02/13/21 23:49 96 H 112/55 L 02/13/21 23:48 92 H 96 02/13/21 23:43 90 94 02/13/21 23:41 87 94 02/13/21 23:38 89 95 02/13/21 23:35 87 94 02/13/21 23:34 86 122/59 L 07/02/21 23:33 88 94 02/13/21 23:30 18 02/13/21 23:28 86 93 02/13/21 23:23 94 H 96 02/13/21 23:21 99 H 94 02/13/21 23:20 36.8 C 02/13/21 23:19 88 119/59 L 02/13/21 23:18 87 96 02/13/21 23:14 91 H 140/59 L 02/13/21 23:13 92 H 95 02/13/21 23:09 98 H 105/55 L 02/13/21 23:08 97 H 95 02/13/21 23:07 94 H 94 02/13/21 23:04 100 H 119/60 02/13/21 23:03 97 H 95 02/13/21 23:00 18 02/13/21 22:59 105 H 122/68 02/13/21 22:58 99 H 96 02/13/21 22:54 98 H 106/63 02/13/21 22:53 99 H 95 02/13/21 22:49 118 H 117/62 02/13/21 22:48 105 H 95 02/13/21 22:45 100 H 94 02/13/21 22:44 105 H 121/55 L 02/13/21 22:43 103 H 97 02/13/21 22:38 106 H 117/59 L 97 02/13/21 22:36 98 H 117/56 L 02/13/21 22:34 94 H 113/57 L 02/13/21 22:33 100 H 96 02/13/21 22:32 96 H 112/57 L 02/13/21 22:30 104 H 104/72 02/13/21 22:28 108 H 117/57 L 96 02/13/21 22:26 101 H 114/55 L 02/13/21 22:24 101 H 109/59 L 02/13/21 22:23 99 H 96 02/13/21 22:22 101 H 104/54 L 02/13/21 22:21 100 H 137/55 L 02/13/21 22:18 115 H 98 02/13/21 22:16 106 H 97/53 L 02/13/21 22:14 100 H 114/53 L 02/13/21 22:13 100 H 96 02/13/21 22:12 102 H 113/54 L 02/13/21 22:10 96 H 119/60 02/13/21 22:08 90 105/55 L 95 02/13/21 22:06 105 H 111/53 L 02/13/21 22:03 102 H 96 02/13/21 21:58 104 H 100 02/13/21 21:57 97 H 94 02/13/21 21:53 96 H 96 02/13/21 21:48 97 H 96 02/13/21 21:43 101 H 96 02/13/21 21:38 104 H 138/88 98 02/13/21 21:36 104 H 138/92 02/13/21 21:33 108 H 97 02/13/21 21:30 36.8 C 18 02/13/21 21:28 105 H 96 02/13/21 21:23 105 H 96 02/13/21 21:22 103 H 93 02/13/21 21:18 106 H 95 02/13/21 21:13 102 H 96 02/13/21 21:08 100 H 98 02/13/21 21:03 101 H 97 02/13/21 20:58 103 H 97 02/13/21 20:53 96 H 96 02/13/21 20:48 103 H 95 02/13/21 20:43 102 H 95 02/13/21 20:38 108 H 96 02/13/21 20:26 103 H 136/78 02/13/21 20:24 107 H 97 02/13/21 20:19 102 H 97 02/13/21 20:14 104 H 100 02/13/21 20:09 100 H 100 02/13/21 20:04 100 H 99 02/13/21 19:59 99 H 99 02/13/21 19:54 104 H 99 02/13/21 19:49 102 H 99 02/13/21 19:44 109 H 99 02/13/21 19:39 105 H 100 02/13/21 19:34 107 H 99 02/13/21 19:29 95 H 98 02/13/21 19:24 107 H 98 02/13/21 19:19 106 H 100 02/13/21 19:14 100 H 100 02/13/21 19:09 105 H 98 02/13/21 19:08 36.7 C 20 02/13/21 19:06 36.7 C 100 H 20 128/71 02/13/21 19:04 99 H 100 02/13/21 18:59 107 H 100 02/13/21 18:54 97 H 96 02/13/21 18:49 102 H 96 02/13/21 18:44 112 H 98 02/13/21 18:39 107 H 97 02/13/21 18:36 101 H 120/62 02/13/21 18:34 100 H 98 02/13/21 18:29 102 H 95 02/13/21 18:19 90 100 02/13/21 18:16 91 H 116/56 L 02/13/21 18:14 88 119/58 L 100 02/13/21 18:09 92 H 99 02/13/21 18:04 87 97 02/13/21 18:00 20
--- NOTE | 2021-02-14 10:01 | Progress Note ---
Date of Service February 14, 2021 Assessment & Plan Admission and Anticipated Discharge Date Admission Date: February 13, 2021 Subjective Met pt and spouse FHR CAT1 Ctx Mild On Pitocin external monitor tracing poorly VE; 4-5/100/-2 AROM with amnio hook scalp and IUPC placed w/o difficulty Results & Data ([facility]) Vital Signs (Past 12 Hours) Vital Signs Temp Pulse Resp BP Pulse Ox 02/14/21 09:53 88 96 02/14/21 09:49 88 128/58 L 02/14/21 09:48 91 H 96 02/14/21 09:43 90 96 02/14/21 09:38 86 97 02/14/21 09:34 93 H 121/63 02/14/21 09:33 90 95 02/14/21 09:30 18 02/14/21 09:28 81 95 02/14/21 09:26 88 94 02/14/21 09:23 83 96 02/14/21 09:19 93 H 116/64 02/14/21 09:18 90 97 02/14/21 09:15 36.7 C 18 02/14/21 09:13 88 97 02/14/21 09:08 87 96 02/14/21 09:05 89 115/65 02/14/21 09:03 84 96 02/14/21 09:00 18 02/14/21 08:58 92 H 96 02/14/21 08:53 95 H 97 02/14/21 08:49 107 H 112/56 L 02/14/21 08:48 91 H 96 02/14/21 08:44 89 94 02/14/21 08:43 90 95 02/14/21 08:38 83 95 02/14/21 08:34 87 116/57 L 02/14/21 08:33 87 95 02/14/21 08:30 18 02/14/21 08:29 18 02/14/21 08:28 89 96 02/14/21 08:23 91 H 94 02/14/21 08:19 86 114/59 L 02/14/21 08:18 86 95 02/14/21 08:13 83 96 02/14/21 08:08 84 95 02/14/21 08:04 88 111/61 93 02/14/21 08:03 87 95 02/14/21 07:58 86 95 02/14/21 07:55 85 94 02/14/21 07:53 82 95 02/14/21 07:49 87 119/60 02/14/21 07:48 84 95 02/14/21 07:47 85 94 02/14/21 07:43 95 H 97 02/14/21 07:40 86 18 94 02/14/21 07:38 86 95 02/14/21 07:34 85 114/58 L 02/14/21 07:33 87 95 02/14/21 07:32 87 94 02/14/21 07:28 83 95 02/14/21 07:25 89 94 02/14/21 07:23 100 H 96 02/14/21 07:19 98 H 111/57 L 02/14/21 07:18 101 H 97 02/14/21 07:13 89 97 02/14/21 07:08 94 H 96 02/14/21 07:06 18 02/14/21 07:04 83 123/66 02/14/21 07:03 85 95 02/14/21 07:00 18 02/14/21 06:58 91 H 94 02/14/21 06:53 88 96 02/14/21 06:49 93 H 112/60 02/14/21 06:48 93 H 95 02/14/21 06:43 90 94 02/14/21 06:42 92 H 94 02/14/21 06:38 87 95 02/14/21 06:34 89 124/66 02/14/21 06:33 86 96 02/14/21 06:30 18 02/14/21 06:28 90 94 02/14/21 06:23 90 95 02/14/21 06:19 90 119/68 02/14/21 06:18 86 95 02/14/21 06:17 84 94 02/14/21 06:13 92 H 96 02/14/21 06:08 95 H 95 02/14/21 06:07 91 H 94 02/14/21 06:04 90 121/61 02/14/21 06:03 92 H 97 02/14/21 06:00 18 02/14/21 05:58 92 H 95 02/14/21 05:56 86 94 02/14/21 05:53 96 H 95 02/14/21 05:50 86 94 02/14/21 05:49 97 H 119/57 L 02/14/21 05:48 100 H 95 02/14/21 05:43 98 H 96 02/14/21 05:42 89 93 02/14/21 05:38 87 95 02/14/21 05:36 89 94 02/14/21 05:34 93 H 114/56 L 02/14/21 05:33 97 H 97 02/14/21 05:30 18 02/14/21 05:28 87 97 02/14/21 05:25 89 94 02/14/21 05:23 95 H 96 02/14/21 05:19 94 H 114/62 02/14/21 05:18 94 H 96 02/14/21 05:13 92 H 97 02/14/21 05:08 97 H 97 02/14/21 05:05 87 119/66 02/14/21 05:04 92 H 94 02/14/21 05:03 95 H 95 02/14/21 04:58 95 H 96 02/14/21 04:56 92 H 94 02/14/21 04:53 94 H 96 02/14/21 04:49 93 H 120/57 L 02/14/21 04:48 93 H 97 02/14/21 04:43 100 H 97 02/14/21 04:38 99 H 97 02/14/21 04:35 104 H 122/55 L 02/14/21 04:33 101 H 97 02/14/21 04:30 18 02/14/21 04:28 95 H 96 02/14/21 04:23 97 H 96 02/14/21 04:20 36.6 C 02/14/21 04:19 93 H 113/58 L 02/14/21 04:18 101 H 96 02/14/21 04:17 94 H 94 02/14/21 04:13 96 H 95 02/14/21 04:08 90 95 02/14/21 04:07 92 H 94 02/14/21 04:05 100 H 103/61 02/14/21 04:03 92 H 95 02/14/21 04:00 18 02/14/21 03:58 112 H 95 02/14/21 03:57 97 H 94 02/14/21 03:53 99 H 94 02/14/21 03:52 97 H 94 02/14/21 03:49 96 H 116/58 L 02/14/21 03:48 98 H 94 02/14/21 03:46 101 H 94 02/14/21 03:43 97 H 94 02/14/21 03:38 95 H 94 02/14/21 03:35 95 H 114/62 02/14/21 03:33 102 H 95 02/14/21 03:30 18 02/14/21 03:29 95 H 94 02/14/21 03:28 98 H 95 02/14/21 03:23 98 H 95 02/14/21 03:21 90 94 02/14/21 03:19 96 H 113/59 L 02/14/21 03:18 96 H 95 02/14/21 03:13 97 H 95 02/14/21 03:08 101 H 95 02/14/21 03:07 96 H 94 02/14/21 03:04 98 H 104/56 L 02/14/21 03:03 101 H 95 02/14/21 03:01 92 H 93 02/14/21 03:00 18 02/14/21 02:58 97 H 96 02/14/21 02:53 92 H 96 02/14/21 02:52 94 H 93 02/14/21 02:49 105 H 115/61 02/14/21 02:48 115 H 97 02/14/21 02:47 93 H 94 02/14/21 02:43 97 H 93 02/14/21 02:42 97 H 94 02/14/21 02:38 101 H 95 02/14/21 02:36 110 H 94 02/14/21 02:34 97 H 115/60 02/14/21 02:33 99 H 94 02/14/21 02:31 102 H 94 02/14/21 02:30 18 02/14/21 02:28 101 H 94 02/14/21 02:25 96 H 94 02/14/21 02:23 103 H 94 02/14/21 02:20 106 H 94 02/14/21 02:19 100 H 115/64 02/14/21 02:18 104 H 95 02/14/21 02:14 100 H 94 02/14/21 02:13 104 H 95 02/14/21 02:08 101 H 95 02/14/21 02:06 107 H 94 02/14/21 02:04 104 H 121/57 L 02/14/21 02:03 110 H 95 02/14/21 02:00 110 H 18 94 02/14/21 01:58 102 H 93 02/14/21 01:54 102 H 93 02/14/21 01:53 110 H 95 02/14/21 01:49 107 H 122/58 L 02/14/21 01:48 100 H 94 02/14/21 01:45 105 H 94 02/14/21 01:43 103 H 94 02/14/21 01:39 100 H 94 02/14/21 01:38 108 H 95 02/14/21 01:34 104 H 112/54 L 02/14/21 01:33 109 H 94 02/14/21 01:30 18 02/14/21 01:28 100 H 95 02/14/21 01:23 100 H 96 02/14/21 01:20 100 H 121/57 L 02/14/21 01:19 94 H 94 02/14/21 01:18 97 H 95 02/14/21 01:13 91 H 95 02/14/21 01:08 89 96 02/14/21 01:07 86 94 02/14/21 01:05 85 121/58 L 02/14/21 01:03 36.7 C 84 96 02/14/21 01:00 18 02/14/21 00:58 87 95 02/14/21 00:57 89 94 02/14/21 00:53 88 97 02/14/21 00:50 84 94 02/14/21 00:49 77 112/59 L 02/14/21 00:48 85 95 02/14/21 00:45 80 94 02/14/21 00:43 83 93 02/14/21 00:38 87 94 02/14/21 00:34 85 112/58 L 02/14/21 00:33 87 96 02/14/21 00:30 18 02/14/21 00:28 98 H 96 02/14/21 00:26 93 H 94 02/14/21 00:23 86 96 02/14/21 00:19 93 H 117/55 L 02/14/21 00:18 83 95 02/14/21 00:16 88 94 02/14/21 00:13 89 96 02/14/21 00:09 95 H 93 02/14/21 00:08 91 H 95 02/14/21 00:05 86 118/55 L 02/14/21 00:03 90 95 02/14/21 00:00 18 02/13/21 23:59 91 H 93 02/13/21 23:58 90 95 02/13/21 23:53 102 H 96 02/13/21 23:50 89 94 02/13/21 23:49 96 H 112/55 L 02/13/21 23:48 92 H 96 02/13/21 23:43 90 94 02/13/21 23:41 87 94 02/13/21 23:38 89 95 02/13/21 23:35 87 94 02/13/21 23:34 86 122/59 L 02/13/21 23:33 88 94 02/13/21 23:30 18 02/13/21 23:28 86 93 02/13/21 23:23 94 H 96 02/13/21 23:21 99 H 94 02/13/21 23:20 36.8 C 02/13/21 23:19 88 119/59 L 02/13/21 23:18 87 96 02/13/21 23:14 91 H 140/59 L 02/13/21 23:13 92 H 95 02/13/21 23:09 98 H 105/55 L 02/13/21 23:08 97 H 95 02/13/21 23:07 94 H 94 02/13/21 23:04 100 H 119/60 02/13/21 23:03 97 H 95 02/13/21 23:00 18 02/13/21 22:59 105 H 122/68 02/13/21 22:58 99 H 96 02/13/21 22:54 98 H 106/63 02/13/21 22:53 99 H 95 02/13/21 22:49 118 H 117/62 02/13/21 22:48 105 H 95 02/13/21 22:45 100 H 94 02/13/21 22:44 105 H 121/55 L 02/13/21 22:43 103 H 97 02/13/21 22:38 106 H 117/59 L 97 02/13/21 22:36 98 H 117/56 L 02/13/21 22:34 94 H 113/57 L 02/13/21 22:33 100 H 96 02/13/21 22:32 96 H 112/57 L 02/13/21 22:30 104 H 104/72 02/13/21 22:28 108 H 117/57 L 96 02/13/21 22:26 101 H 114/55 L 02/13/21 22:24 101 H 109/59 L 02/13/21 22:23 99 H 96 02/13/21 22:22 101 H 104/54 L 02/13/21 22:21 100 H 137/55 L 02/13/21 22:18 115 H 98 02/13/21 22:16 106 H 97/53 L 02/13/21 22:14 100 H 114/53 L 02/13/21 22:13 100 H 96 02/13/21 22:12 102 H 113/54 L 02/13/21 22:10 96 H 119/60 02/13/21 22:08 90 105/55 L 95 02/13/21 22:06 105 H 111/53 L 02/13/21 22:03 102 H 96
[2021-02-14] MEDS ORDERED: HYDROCORTISONE ACETATE 25 MG SUPP PR PRN (12:16)
[2021-02-14] MEDS ORDERED: BENZOCAINE 20% AER SPR 82.5 GM CAN EXT PRN (12:16)
[2021-02-14] MEDS ORDERED: SUPERCREAM 0.870% 15 GM JAR EXT PRN (12:16)
[2021-02-14] MEDS ORDERED: ACETAMINOPHEN 325 MG TAB PO PRN (12:16)
[2021-02-14] MEDS ORDERED: DIPHTHERIA/TETANUS/PERTUSSIS 0.5 ML SYR/VIAL IM ONE (12:16)
[2021-02-14] MEDS ORDERED: LACTATED RINGER'S 1,000 ML IV SCH (12:30)
--- NOTE | 2021-02-14 13:47 | Anesthesia Procedure Note ---
Date of Service February 14, 2021 Anesthesia Post Epidural Note Vital Signs Vital Signs: Temp Pulse Resp BP Pulse Ox 36.7 C 103 H 18 126/64 96 02/14/21 11:06 02/14/21 13:34 02/14/21 13:33 02/14/21 13:34 02/14/21 11:48 Notes Mental Status: alert / awake / arousable and participated in evaluation Nausea / Vomiting: adequately controlled Pain: adequately controlled Airway Patency, RR, SpO2: stable & adequate BP & HR: stable & adequate Hydration State: stable & adequate Neuraxial Anesthesia: was administered and sensory block is resolving Anesthetic Complications: no major complications apparent and Pt Satisfied with anesthetic care Epidural: Removed without complications and With tip intact Notes: Epidural site clean, dry and intact. No signs of edema, erythema or bruising at insertion site. Pt instructed to request anesthesia if she has residual lower extremity numbness or if she develops lower extremity pain or weakness, back pain or headache.
[2021-02-14] MEDS: IBUPROFEN 600 MG TAB PO PRN ×2 (15:36→19:30)
[2021-02-14] MEDS: DOCUSATE SODIUM 100 MG CAP PO SCH (20:28)
--- NOTE | 2021-02-15 06:26 | Obstetrical Progress Note ---
Date of Service February 15, 2021 Assessment & Plan (1) Normal course: PPD #1 pt doing well continue day 1 care Subjective Ambulation: ambulating normally Voiding: no voiding problems Passing Gas:: Yes Diet Tolerance:: regular diet Lochia:: Small Feeding Type:: breast feeding Review of Systems All systems reviewed & are unremarkable except as noted in HPI & below Physical Exam Constitutional WD/WN, vitals as above well developed and well nourished Eyes PERRL, conjunctivae normal, anicteric sclerae Neck trachea midline, no thyromegaly Respiratory normal respiratory effort, lungs clear to auscultation Auscultation: no crackles, no rales and no wheezes Cardiovascular RRR, no murmur, no edema Gastrointestinal (Abdomen) normal bowel sounds, soft, nontender, no hepatosplenomegaly Uterus is below umbilicus Musculoskeletal no cyanosis or clubbing, extremities motor strength 5/5 Skin no rashes, warm and dry Neurologic patellar DTR's 2+ bilat, sensation intact Psychiatric A+Ox3, euthymic affect Genitourinary normal external appearance Results & Data ([facility]) Vital Signs (Past 12 Hours) Vital Signs Temp Pulse Resp BP Pulse Ox 02/15/21 03:03 36.5 C 71 16 109/71 95 02/14/21 22:57 36.8 C 82 16 121/72 97 02/14/21 19:00 36.7 C 89 16 109/76 97
[2021-02-15 06:47] LABS: Hematocrit (blood only) 32.1 % (37-47); Hemoglobin 10.4 g/dL (12.0-16.0); Mean Corpuscular Hemoglobin 26.5 pg (25-34); Mean Corpuscular Hgb Conc 32.4 g/dL (32-36); Mean Corpuscular Volume 81.7 fL (80-100); Mean Platelet Volume 10.5 fL (7.4-10.4); Platelet Count 255 K/uL (130-400); RDW Coefficient of Variation 15.5 % (11.5-14.5); RDW Standard Deviation 45.7 fL (36.4-46.3); Red Blood Count 3.93 M/uL (4.2-5.4); White Blood Count 8.56 K/uL (4.8-10.8)
[2021-02-15] MEDS: DOCUSATE SODIUM 100 MG CAP PO SCH (07:56)
[2021-02-15] MEDS ORDERED: PRENATAL VITAMIN 1 TAB PO SCH (08:00)
--- NOTE | 2021-02-15 11:08 | Delivery Summary ---
DATE OF SERVICE: 02/14/2021 DELIVERY NOTE: The patient delivered a live in occiput anterior presentation. There was nuch al cord x2, which was easily reduced. The first nuchal cord had a true knot in it. was deliv ered to the mother's abdomen. Cord was clamped and cut. 's weight and Apgars in the pediatric record. Cord blood was obtained. Placenta spontaneously delivered. Inspection of the peritoneum s howed a periurethral tear, which had significant bleeding. Rose catheter was placed in the patient' s bladder to help identify the urethra. The urethral tear was repaired with 2-0 Vicryl. There was g ood hemostasis post-repair. There was no blood in the urine collected in the Rose bag. Rose was r emoved after repair. Estimated blood loss was 550 mL. Baby and mother are doing well in recovery. All instruments were re moved from the vagina and accounted for x2. Job ID: [id number]
--- NOTE | 2021-02-15 11:10 | Obstetrical Progress Note ---
Date of Service February 15, 2021 Assessment & Plan (1) Normal course: PPD #1 pt doing well disch home with instructions Subjective Ambulation: ambulating normally Voiding: no voiding problems Passing Gas:: Yes Diet Tolerance:: regular diet Lochia:: Small Feeding Type:: breast feeding Review of Systems All systems reviewed & are unremarkable except as noted in HPI & below Physical Exam Constitutional WD/WN, vitals as above well developed and well nourished Eyes PERRL, conjunctivae normal, anicteric sclerae Neck trachea midline, no thyromegaly Respiratory normal respiratory effort, lungs clear to auscultation Auscultation: no crackles, no rales and no wheezes Cardiovascular RRR, no murmur, no edema Gastrointestinal (Abdomen) normal bowel sounds, soft, nontender, no hepatosplenomegaly Uterus is below umbilicus Musculoskeletal no cyanosis or clubbing, extremities motor strength 5/5 Skin no rashes, warm and dry Neurologic patellar DTR's 2+ bilat, sensation intact Psychiatric A+Ox3, euthymic affect Genitourinary normal external appearance Results & Data ([facility]) Vital Signs (Past 12 Hours) Vital Signs Temp Pulse Resp BP Pulse Ox 02/15/21 08:00 36.5 C 74 18 121/79 97 02/15/21 03:03 36.5 C 71 16 109/71 95
[2021-02-15] MEDS ORDERED: bisacodyL 5 MG TABEC PO SCH (20:00)
[2021-02-16] MEDS ORDERED: bisacodyL 10 MG SUPP PR PRN (06:00)
== END 2021-02-15 13:35 | disposition home or self-care (01) | DRG 806 ==
LOC: 4S1 02-13 14:31 → 4S2 02-14 15:06